=== PATIENT | female | born 1935 | race Asian ===

== ENCOUNTER 2022-03-18 20:39 | Emergency (ER) | payer SELFPAY ==
[2022-03-18 21:24] LABS: #Basophils 0.1 10x3/uL (0.0-0.2); #Eosinphils 0.2 10x3/uL (0.0-0.5); #Monocytes 0.6 10x3/uL (0.0-1.1); #Neutrophils 3.7 10x3/uL (1.5-8.4); %Basophils 0.8 % (0.0-2.0); %Eosinophils 2.8 % (0.0-6.0); %Lymphocytes 37.1 % (18.0-47.0); %Monocytes 7.7 % (0.0-10.0); %Neutrophils 51.5 % (40.0-75.0); Hemoglobin 12.2 g/dL (12.0-15.5); Mean Corpuscular HGB CONC 33.3 g/dL (32.0-36.0); Mean Corpuscular Hemoglobin 31.8 pg (27.0-33.0); Mean Corpuscular Volume 95.3 fl (81.6-98.3); Mean Platelet Volume 9.5 fl (7.4-10.4); Platelet Count 211 10x3/uL (150-450); RBC Distribution Width 12.9 % (11.5-14.5); Red Blood Cell (RBC) Count 3.84 10x6/uL (3.90-5.03); White Blood Cell (WBC) Count 7.3 10x3/uL (3.5-10.5)
[2022-03-18 21:36] LABS: Acetaminophen Less than 10.0 mcg/mL (10.0-30.0); Alcohol Less than 10 mg/dL (Less than 10); Salicylate Less than 8.0 mg/dL (15.0-30.0)
[2022-03-18 21:37] LABS: ALT (SGPT) 12 U/L (8-55); AST (SGOT) 18 U/L (5-34); Albumin 3.9 g/dL (3.4-4.8); Alkaline Phosphatase 75 U/L (40-110); Anion Gap 14 mmol/L (10-20); BUN (Urea Nitrogen) 27 mg/dL (9.8-20.1); Bilirubin, Total 0.3 mg/dL (0.2-1.2); Calc. Creatinine Clearance 0 mL/min (70-130); Calcium 8.7 mg/dL (7.8-10.44); Carbon Dioxide 26 mmol/L (23-31); Chloride 105 mmol/L (98-107); Estimated GFR 36; Globulin 3.1 g/dL (2.4-3.5); Glucose 138 mg/dL (83-110); Potassium 3.6 mmol/L (3.5-5.1); Sodium 141 mmol/L (136-145)
[2022-03-18 22:33] LABS: Actual Bicarbonate (HCO3v) 26 mEq/L (22-28); Base Excess -0.7 mEq/L (-2.0 to +3.0); Chloride (VBG) 104 mmol/L (98-106); Hemoglobin (Hb) 12.2 g/dL (11.7-16.1); Potassium (VBG) 3.62 mmol/L (3.70-5.30); Puncture Site Other Site; RapidComm Collect By Lab; Sodium 140.9 mmol/L (133-146); pH (venous) 7.34 (7.32-7.43)
[2022-03-18 23:12] LABS: Bilirubin Neg (Negative); Blood, Urine 250 (Negative); Clarity Clear (Clear); Glucose, Urine (Dipstick) Normal (Negative); Ketone, Urine Negative (Negative); Leukocyte 25 (Negative); Nitrite Negative (Negative); Protein, Urine (Dipstick) Negative (Neg-Trace); Urobilinogen Normal mg/dL (Less than 2)
[2022-03-18 23:20] LABS: Amphetamine Not Detected (NotDetected); Barbiturates Screen Not Detected (NotDetected); Benzodiazepine Screen Not Detected (NotDetected); Cocaine Metabolite Screen Not Detected (NotDetected); Methadone Not Detected (NotDetected); Methamphetamine Not Detected (NotDetected); Opiate Screen Not Detected (NotDetected); Oxycodone Screen Not Detected (NotDetected); Phencyclidine (PCP) Not Detected (NotDetected); THC/Cannabinoid Screen Not Detected (NotDetected); Tricyclic Screen Not Detected (NotDetected)
[2022-03-18 23:36] LABS: Bacteria/HPF Rare-Few HPF (None Seen); Squamous Epithelial 0-3 HPF (0-3); WBC/HPF 0-3 HPF (0-3)
== END 2022-03-19 01:00 | disposition home or self-care (01) ==
LOC: CSHERS 20:39 → EDBD 20:39 → CSHERS 03-19 01:00
DX: E86.0 Dehydration (principal); I10 Essential (primary) hypertension
CPT/HCPCS: 70450; 71045; 80053; 80306; 80307; 81003; 81015; 82805; 83605; 84484; 85025; 93005